=== PATIENT | female | born 1990 | race Caucasian/White ===

== ENCOUNTER 2017-07-05 20:24 | Emergency (ER) | payer BC, OTHER ==
[2017-07-05 20:29] VITALS: BMI 37.1
[2017-07-05 21:16] LABS: BILIRUBIN,URINE NEGATIVE (NEGATIVE); BLOOD/HEMOGLOBIN,URINE NEGATIVE (NEGATIVE); GLUCOSE, URINE NEGATIVE (NEGATIVE); KETONES,URINE NEGATIVE (NEGATIVE); LEUKOCYTE ESTERASE ,URINE NEGATIVE (NEGATIVE); NITRITES,URINE NEGATIVE (NEGATIVE); PH,URINE 6.5 (5.0 - 8.0); PROTEIN,URINE 1+ (NEGATIVE); UROBILINOGEN,URINE NORMAL (NORMAL)
[2017-07-05 21:26] LABS: APPEARANCE,URINE CLEAR (CLEAR); BACTERIA,URINE NEGATIVE /HPF (NEGATIVE); COLOR,URINE YELLOW (YELLOW); RBC,URINE 0-3 /HPF (NEGATIVE); SQUAMOUS EPITHELIAL CELL,UR MODERATE /HPF (NEGATIVE)
[2017-07-05] MEDS ORDERED: TORADOL 60 MG VIAL IM ONE (22:32)
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
[2017-07-05] MEDS ORDERED: TORADOL 60 MG VIAL ONE (22:41)
[2017-07-05 23:44] VITALS: BP 160/103
== END 2017-07-05 23:44 | disposition home or self-care (01) ==
LOC: ER 20:38
DX: R51 Headache (principal); I10 Essential (primary) hypertension; M54.5 Low back pain; G89.29 Other chronic pain
CPT/HCPCS: 81001; 96372; 99282; J1885